=== PATIENT | female | born 1965 | race Caucasian/White ===

== ENCOUNTER 2024-08-07 10:26 | Emergency (ER) | payer BC ==
[~2024-08-07] VITALS: Ht 162.6 cm; Wt 113.4 kg
[2024-08-07 10:31] VITALS: BP 148/100; TEMP 98.2
[2024-08-07] MEDS ORDERED: IBUP-1955 PO (12:42)
[2024-08-07 12:55] VITALS: O2SAT 100
== END 2024-08-07 13:01 | disposition home or self-care (01) ==
LOC: ER 10:46
DX: M25.521 Pain in right elbow (principal); M25.522 Pain in left elbow; M25.561 Pain in right knee; M25.562 Pain in left knee; M54.50 Low back pain, unspecified; M25.512 Pain in left shoulder; W01.0XXA Fall on same level from slipping, tripping and stumbling without subsequent striking against object, initial encounter; Y93.89 Activity, other specified; Y92.89 Other specified places as the place of occurrence of the external cause; Y99.8 Other external cause status
CPT/HCPCS: 73030-TC; 73070-TC; 73080-TC; 73564-TC